=== PATIENT | male | born 2000 ===

== ENCOUNTER 2022-07-24 15:38 | Emergency (ER) | payer BC, SELFPAY ==
[2022-07-24 15:50] VITALS: BP 123/76; PULSE 78; RESP 18; TEMP 37.6; O2SAT 97; BMI 25.8
[2022-07-24 16:44] LABS: Albumin* 4.3 g/dL (3.3-5.0)
[2022-07-24 16:47] LABS: Alanine Aminotransferase* 25 U/L (4-50); Alkaline Phosphatase* 51 U/L (40-150); Aspartate Amino Transferase* 22 U/L (12-35); Bilirubin Direct* 0.3 mg/dL (0.0-0.5); Bilirubin Total* 2.2 mg/dL (0.1-1.5)
--- NOTE | 2022-07-24 17:08 | ED.GENADULT ---
HPI - General Adult General Chief complaint: Unspecified Complaint, Adult Stated complaint: Covid+ Wants Liver Labs Drawn Time Seen by Provider: 07/24/22 15:47 Source: patient Mode of arrival: ambulatory Limitations: no limitations History of Present Illness HPI narrative: 21-year-old male coming in today wanting to have LFTs checked. He states that he has a history of Gilbert's syndrome, is concerned about starting the Paxlovid that he was prescribed yesterday. Was diagnosed with COVID-19 on , complains of cough fever and fatigue. No other concerns today. Related Data Home Medications Medication Instructions Recorded Confirmed dexmethylphenidate .ROUTE 07/24/22 escitalopram oxalate 10 mg tablet 10 mg PO DAILY 07/24/22 07/24/22 (Lexapro) Allergies Allergy/AdvReac Type Severity Reaction Status Date / Time No Known Drug Allergies Allergy Verified 07/24/22 15:50 Review of Systems Status of ROS: Reports: 6 or more systems reviewed and unremarkable except as noted in History and below Exam Narrative: Exam Narrative: Well-nourished well-developed patient in no acute distress. Alert and oriented. Answers questions appropriately. Mood and affect are appropriate. Thoughts are goal oriented and rational. No tangential or magical thinking noted. Patient speaks in full sentences without needing to catch his breath. Hemodynamically stable. HEENT: Normocephalic atraumatic. Pupils are equally round reactive to light. Extraocular muscles are intact. Conjunctivae are moist without any icterus noted. Bilateral injection noted. Skin: Well perfused without any obvious rashes. Const: Vital Signs, click to edit/add: Vital Signs - 24 hr 07/24/22 15:50 Temperature 99.6 F Pulse Rate [Pulse Oximeter] 78 Respiratory Rate 18 Blood Pressure [Le ft Upper Arm] 123/76 Pulse Oximetry 97 Oxygen Delivery Me thod Room Air Course Course Hospital Course: LFTs were checked, bilirubin slightly elevated at 2.2. Vital Signs Vital signs: Initial Vital Signs Temperature 99.6 F 07/24/22 15:50 Temperature Source Temporal Artery Scan 07/24/22 15:50 Pulse Rate 78 07/24/22 15:50 Respiratory Rate 18 07/24/22 15:50 Blood Pressure 123/76 07/24/22 15:50 Blood Pressure Mean 91 07/24/22 15:50 Pulse Oximetry 97 07/24/22 15:50 Oxygen Delivery Method Room Air 07/24/22 15:50 Vital Signs Temperature 99.6 F 07/24/22 15:50 Pulse Rate 78 07/24/22 15:50 Respiratory Rate 18 07/24/22 15:50 Blood Pressure 123/76 07/24/22 15:50 Pulse Oximetry 97 07/24/22 15:50 Oxygen Delivery Method Room Air 07/24/22 15:50 Temperature 99.6 F 07/24/22 15:50 Pulse Rate 78 07/24/22 15:50 Respiratory Rate 18 07/24/22 15:50 Blood Pressure 123/76 07/24/22 15:50 Pulse Oximetry 97 07/24/22 15:50 Oxygen Delivery Method Room Air 07/24/22 15:50 Medical Decision Making MDM Narrative Medical decision making narrative: 21-year-old male with COVID-19 and Gilbert's syndrome. Okay to take Paxil of it as prescribed. Patient is not on any other medications. Lab Data Lab results reviewed: Yes I reviewed the patient's lab results Labs: Lab Results 07/24/22 Range/Units 16:10 Total Bilirubin 2.2 H (0.1-1.5) mg/dL Direct Bilirubin 0.3 (0.0-0.5) mg/dL AST 22 (12-35) U/L ALT 25 (4-50) U/L Alkaline Phosphatase 51 (40-150) U/L Total Protein 7.0 (6.0-8.3) g/dL Albumin 4.3 (3.3-5.0) g/dL Discharge Plan Discharge Clinical Impression: Gilbert's disease, COVID-19 Patient Disposition: Home, Self-Care Condition: Stable Additional Instructions: Okay to start Paxlovid as prescribed. Prescriptions: No Action dexmethylphenidate [Focalin] .ROUTE escitalopram oxalate [Lexapro] 10 mg tablet 10 mg PO DAILY Follow Up/Referrals: Provider,Not a Local [Primary Care Provider] - Stand Alone Forms: [employer] Info Instructions
== END 2022-07-24 17:16 | disposition home or self-care (01) ==
PROVIDERS: Emergency Provider Family Medicine
DX: U07.1 COVID-19 (principal); E80.4 Gilbert syndrome
CPT/HCPCS: 36415; 80076; 99282; 99283